=== PATIENT | male | born 1945 | race Hispanic/Latino ===

== ENCOUNTER 2016-08-08 12:06 | Day surgery (SDC) | payer MEDICARE ==
[~2016-08-08 12:06] MED LIST: OMNIPAQUE 300 MG/50 ML (CATH LAB) IV ONE; WATER FOR IRRIG STERILE IR ONE
--- NOTE | 2016-08-08 12:48 | Anesthesia Consultation ---
Anesthesia Consult and Med Hx Date of service: 08/08/16 - Airway Anesthetic Teeth Evaluation: Good, Bridges ROM Head & Neck: Adequate Mental/Hyoid Distance: Adequate Mallampati Class: Class III Intubation Access Assessment: Probably Good - Pulmonary Exam CTA: Yes (cough from recent cold x2 weeks ago) - Cardiac Exam Cardiac Exam: RRR - Pre-Operative Health Status ASA Pre-Surgery Classification: ASA3 Proposed Anesthetic Plan: General - Pulmonary Hx Smoking: Yes (STOPPED X 40 YRS- 2PPD X 6 YRS) SOB: No (coughing from recent cold 2x week ago) Hx Sleep Apnea: No (SG PRE SCREEN HIGH RISK) - Cardiovascular System Hx Hypertension: Yes (X 20 YRS) - Central Nervous System Hx Seizures: No CVA: No Hx Psychiatric Problems: No - Gastrointestinal Hx Gastroesophageal Reflux Disease: No - Endocrine Hx Non-Insulin Dependent Diabetes: Yes Hx Thyroid Disease: Yes Hx Hypothyroidism: Yes (ON MEDS) - Hematic Hx Anemia: No Hx Sickle Cell Disease: No - Other Systems Hx Alcohol Use: Yes (OCCASIONAL BEER) Hx Substance Use: No Hx Cancer: Yes
--- NOTE | 2016-08-08 12:49 | Anesthesia Day of Surgery ---
Anesthesia Day of Surgery - Day of Surgery Patient Examined: Yes Patient H&P Reviewed: Yes Patient is NPO: Yes
[2016-08-08] MEDS ORDERED: NACL 0.9% 1000 ML 1,000 ML IV SCH (12:50)
[2016-08-08] MEDS ORDERED: PEPCID IV NR (12:50)
[2016-08-08] MEDS ORDERED: VERSED IV NR (12:51)
[2016-08-08] MEDS ORDERED: ANCEF/STERILE WATER 2 GM/20 ML IV NR (13:00)
[2016-08-08 13:22] LABS: Hematocrit 42.5 % (35.5-45.6); Hemoglobin 14.8 gm/dl (11.8-15.2)
[2016-08-08] MEDS ORDERED: DIPRIVAN 10 MG/ML IV ONE (13:24)
[2016-08-08] MEDS ORDERED: SUBLIMAZE ONE (13:24)
[2016-08-08 13:39] LABS: Anion Gap 15 mmol/L; BUN/Creatinine Ratio 21.66; Blood Urea Nitrogen 13 mg/dL (9-20); Calcium 8.7 mg/dL (8.4-10.2); Carbon Dioxide 25 mmol/L (22-30); Chloride 102.6 mmol/L (98-107); Glucose 141 mg/dL (75-100); Potassium 4.2 mmol/L (3.6-5.0); Sodium 138 mmol/L (137-145)
[2016-08-08] MEDS ORDERED: ZOFRAN IV PRN (14:04)
[2016-08-08] MEDS ORDERED: DILAUDID IV PRN (14:04)
[2016-08-08] MEDS ORDERED: NACL 0.9% 0 ML ONE (14:22)
[2016-08-08] MEDS ORDERED: NEO SYNEPHRINE ONE (14:22)
[2016-08-08] MEDS ORDERED: ROBINUL ONE (14:22)
[2016-08-08] MEDS ORDERED: ZOFRAN ONE ×2 (14:23)
[2016-08-08] MEDS ORDERED: DECADRON ONE (14:23)
[2016-08-08] MEDS ORDERED: OMNIPAQUE 300 MG/50 ML (CATH LAB) IV ONE (14:42)
[2016-08-08] MEDS ORDERED: WATER FOR IRRIG STERILE IR ONE ×2 (14:44)
[2016-08-08] MEDS ORDERED: NACL 0.9% 1000 ML 1,000 ML ONE (14:47)
--- NOTE | 2016-08-08 14:53 | Post Operative Note ---
Pre-op diagnosis: bladder cancer Post-op diagnosis: same Findings: patchy area post wall and prost urethra Procedure: cysto biopsies chandler gusman Anesthesia: GETMichelle Surgeon: ROB VARNER Estimated blood loss: minimal Pathology: list (bladder lesions) Specimen disposition: to lab Condition: stable Disposition: PACU
--- NOTE | 2016-08-08 14:54 | Discharge Summary ---
Short Stay Discharge Plan Activity: other (no straining ) Weight Bearing Status: Full Weight Bearing Diet: low fat, low cholesterol, low salt Special Instructions: other (inc fluids ) Durable Medical Equipment Needed Upon Discharge: other (home with [facility] ) Follow up with: MAX BARNES DO [Primary Care Provider] - 7 Days ROB VARNER MD [Staff Physician] - 7 Days
--- NOTE | 2016-08-08 15:54 | Post Anesthesia Evaluation ---
- Post Anesthesia Evaluation Patient Participated: Yes Airway Patent: Yes Stable Respiratory Function: Yes Nausea/Vomiting: No Temp > 96.8F: Yes Pain Manageable: Yes Adequeate Hydration: Yes Anesthesia Complications: No Block Receding Appropriately: Not Applicable Patient on Ventilator: No
--- NOTE | 2016-08-08 16:00 | Fluoroscopy Report ---
Retrograde pyelogram: Injections of contrast were made bilaterally into the distal ureters. There is good opacification of the ureters and intrarenal collecting systems. No filling defects or contour deformity is noted. Impression: Normal exam.
[2016-08-08 16:57] VITALS: BP 152/86
--- NOTE | 2016-08-15 01:16 | Operative Report ---
PREOPERATIVE DIAGNOSES: History of bladder cancer. POSTOPERATIVE DIAGNOSIS: History of bladder cancer. PROCEDURE: Cystoscopy, bladder biopsies. SURGEON: Ronni Ramires MD ANESTHESIA: General. FINDINGS: This is a gentleman with history of bladder cancer, now presents for surveillance cystoscopy. All risks and complications were discussed. DESCRIPTION OF PROCEDURE: The patient was brought to the operating room and placed on the operating table. Following induction of anesthesia, placed in lithotomy position, prepped and draped in usual sterile fashion. Cystourethroscopy showed some erythema in the posterior wall of the bladder and at the prostatic urethra. This was right sitting on the bladder epithelium, would be sitting on the middle lobe when the bladder was emptied. The areas were biopsied and cauterized. Retrograde showed no persistent filling defects. The patient tolerated the procedure well. There were no significant complications, brought to recovery room in stable condition. Urine was clear. JOB# [id number] DAVID/CARMELA
== END 2016-08-08 16:40 | disposition home or self-care (01) ==
LOC: OR 12:06
PROVIDERS: ATTEND Urology
DX: C67.2 Malignant neoplasm of lateral wall of bladder (principal); Z87.891 Personal history of nicotine dependence; I10 Essential (primary) hypertension; E03.9 Hypothyroidism, unspecified; F10.99 Alcohol use, unspecified with unspecified alcohol-induced disorder; E11.9 Type 2 diabetes mellitus without complications; Z87.39 Personal history of other diseases of the musculoskeletal system and connective tissue; Z86.19 Personal history of other infectious and parasitic diseases
CPT/HCPCS: 36415; 52204; 74420; 80048; 82962; 85014; 85018; 88305; A4217; C1758; J0690; J1100; J2250; J2405; J2704; J3010; J7030; Q9967; J2370

== ENCOUNTER 2016-11-28 10:28 | Day surgery (SDC) | payer MEDICARE ==
--- NOTE | 2016-11-22 13:10 | Admit Criteria Form ---
Admission Criteria Documentation: AMBULATORY SURGERY EXCEPTION CRITERIA Ambulatory Surgery Exception Criteria ( Place 'X' for any and all applicable criteria): Surgery or procedure performed on ambulatory basis may require inpatient stay for[A] ANY ONE of the following(1)(2)(3)(4)(5)(6)(7)(8)(9): [X] I. A preoperative situation, condition, or finding that warrants inpatient stay as indicated by ANY ONE of the following: [X] a) Inpatient care needed because of severity of a disease or condition rather than the surgery (eg, severe cardiac or respiratory disease, severe infection) (15) (16 ) (17) (18) [] b) Emergent procedure (eg, angioplasty for acute ischemia)(19) [] c) Complex surgical approach or situation as indicated by ANY ONE of the following(3): [] i) Open approach needed instead of usual endoscopic, transcatheter, or other less invasive procedure [] ii) Difficult approach because of previous operation [] iii) Airway monitoring required after open neck procedures(20)(21) [] iv) Large mass requiring unusually extensive dissection [] v) Additional complicating feature requiring inpatient care (eg, drain management)(22(23): [] d) Major surgery in a pt with high anesthetic risk as indicated by ANY ONE of the following (2)(3)(5)(7)(8): [] i) ASA risk class III or higher (severe systemic disease impairing function) [D] [] ii) Advanced age (eg, older than 85 years)(14)(24) [] iii) Symptomatic heart failure(25) [] iv) Symptomatic asthma or COPD(8)(21) [] v) Morbid obesity with hemodynamic or respiratory problems(20)( 21)(26)(27) [] vi) Obstructive sleep apnea(20)(21) [] vii) Former premature infants who are younger than 60 weeks [] viii) High risk for severe postoperative abnormalities (eg, severe postoperative hypocalcemia after parathyroidectomy for severe hyperparathyroidism)(27)( 28) [] ix) Unstable angina(25) [] e) Drug-related risk requiring inpatient stay as indicated by ANY ONE of the following(5)(10)(14)(32)(33) [] i) Procedure requires discontinuing drugs or other therapy (eg , antiarrhythmic medication, antiseizure medication), which necessitates inpatient observation or treatment.(18)(31) [] ii) Major surgery and high risk drug use as indicated by ANY ONE of the following: [] 1) Active abuse of cocaine or similar drug [] 2) Monoamine oxidase inhibitor use [] 3) Other drug identified as posing risk [] f) Inadequate outpatient care situation as indicated by ANY ONE of the following(5)(10)(14)(32)(33) [] i) Patient lives remote from medical facility and procedure has urgent complication potential, and temporary nearby residence cannot be arranged [] ii) Patient will have postprocedure incapacitation and inadequate assistance at home, or alternative level of care cannot be arranged. [] iii) Patient will have long general anesthesia or procedure side effect resolution time, and competent person to stay with patient on first postoperative night at home or alternative level of care cannot be arranged. []iv) Other inadequate outpatient situation that cannot be handled by other means [] II. A perioperative event, condition, or finding that warrants inpatient stay as indicated by ANY ONE of the following (1)(2)(3): [] a) Inadequate physiologic recovery: cardiovascular, respiratory, or hemodynamic status not normal or near preoperative baseline(18) [] b) Hemodynamic instability [] c) Patient not alert with near normal or baseline mental status [] d) Temperature not normal or as expected and not appropriate for outpatient treatment of condition [] e) Ambulatory or appropriate activity level status not yet achieved post procedure [E](34)(35)(36) [] f) Operative site not appropriate (eg, unexpected or excessive drainage or bleeding) [] g) Postoperative effects not resolved or adequately managed (eg, significant pain or vomiting not appropriate for outpatient or next level of care)(10)(12) [] h) Complicating features requiring inpatient care as indicated by ANY ONE of the following(37): [] i) Severe complications of procedure (eg, bowel injury, airway compromise, vascular injury,severe hemorrhage) [] ii) Extensive (eg, dissection far beyond usual scope of procedure ) or prolonged (eg, 120 minutes beyond usual) surgery needed requiring inpatient postoperative care [] iii) Conversion to an open or complex procedure that requires inpatient care (eg, open vs laparoscopic cholecystectomy, abdominal vs vaginal hysterectomy)(38) [] iv) Comorbid condition or test result identified during or post procedure that requires inpatient care (7) [] v) Malignant hyperthermia(30) [] vi) Other complicating feature requiring inpatient care(22)(23) Inpatient stay may be needed until ALL of the following are present (1)(2)(3)(4) (5)(6)(10)(14)(33)(40): []a) Physiologic recovery: cardiovascular, respiratory, and hemodynamic status normal or near preoperative baseline []b) Hemodynamic stability []c) Patient alert, with near normal or baseline mental status []d) Temperature appropriate: patient afebrile or temperature appropriate for outpt treatment of condition []e) Activity level appropriate: ambulatory or appropriate activity level post procedure []f) Operative site appropriate as indicated by ALL of the following: []i) Site dry or with expected drainage []ii) Any blood noted is as expected for procedure. []g) Postoperative effects resolved or managed as indicated by ALL of the following: []i) Pain management appropriate for outpatient (or next level of) care(10) []ii) Minimal nausea and vomiting: if present, successfully treated with oral medication(12) []iii) Headache, dizziness, or drowsiness (if present) are mild. []h) Voiding status acceptable as indicated by ANY ONE of the following: []i) Voiding spontaneously []ii) No voiding but instructions given for follow-up in 6 to 8 hours []iii) Urinary catheter in place, and instructions given for follow-up []i) Complicating features requiring inpatient care manageable at a lower level of care(37) []j) Comorbid conditions manageable at a lower level of care(37) The original [employer] content created by [employer] has been revised. The portions of the content which have been revised are identified through the use of italic text or in bold, and [employer] has neither reviewed nor approved the modified material. All other unmodified content is copyright [employer]. Please see references footnoted in the original [employer] edition 2016
[~2016-11-28 10:28] MED LIST changes: +ANCEF/STERILE WATER 2 GM/20 ML 2 GM/20 ML SYRINGE IV NR; +NACL 0.9% 1000 ML 1,000 ML IV SCH; -OMNIPAQUE 300 MG/50 ML (CATH LAB) IV ONE; +PEPCID PO NR; -WATER FOR IRRIG STERILE IR ONE
[2016-11-28] MEDS ORDERED: NACL BACTERIOSTATIC INFILTRATI ONE (10:50)
--- NOTE | 2016-11-28 11:19 | Anesthesia Consultation ---
Anesthesia Consult and Med Hx Date of service: 11/28/16 - Airway Anesthetic Teeth Evaluation: Good, Crowns, Bridges ROM Head & Neck: Adequate Mental/Hyoid Distance: Adequate Mallampati Class: Class III Intubation Access Assessment: Possibly Difficult - Pre-Operative Health Status ASA Pre-Surgery Classification: ASA3 Proposed Anesthetic Plan: General - Pulmonary Hx Smoking: Yes (STOPPED X 40 YRS- 2PPD X 6 YRS) Hx Sleep Apnea: No (SG PRE SCREEN HIGH RISK) - Cardiovascular System Hx Hypertension: Yes (X 20 YRS) Hx Coronary Artery Disease: No (high cholesterol) - Central Nervous System Hx Seizures: No CVA: No Hx Psychiatric Problems: No - Gastrointestinal Hx Gastroesophageal Reflux Disease: No - Endocrine Hx Non-Insulin Dependent Diabetes: Yes Hx Thyroid Disease: Yes Hx Hypothyroidism: Yes (ON MEDS) - Hematic Hx Anemia: No Hx Sickle Cell Disease: No - Other Systems Hx Alcohol Use: Yes (OCCASIONAL BEER) Hx Substance Use: No Hx Cancer: Yes Hx Obesity: Yes (BMI 33)
--- NOTE | 2016-11-28 11:19 | Anesthesia Day of Surgery ---
Anesthesia Day of Surgery - Day of Surgery Patient Examined: Yes Patient H&P Reviewed: Yes Patient is NPO: Yes
[2016-11-28 11:26] LABS: Hematocrit 43.6 % (35.5-45.6); Hemoglobin 14.9 gm/dl (11.8-15.2)
[2016-11-28] MEDS ORDERED: XYLOCAINE MPF 2% ONE (11:38)
[2016-11-28] MEDS ORDERED: DIPRIVAN 10 MG/ML IV ONE (11:39)
[2016-11-28] MEDS ORDERED: SUBLIMAZE ONE (11:39)
[2016-11-28 11:47] LABS: Anion Gap 14 mmol/L; Blood Urea Nitrogen 14 mg/dL (9-20); Calcium 8.7 mg/dL (8.4-10.2); Carbon Dioxide 26 mmol/L (22-30); Chloride 103.2 mmol/L (98-107); Glucose 133 mg/dL (75-100); Potassium 4.1 mmol/L (3.6-5.0); Sodium 139 mmol/L (137-145)
[2016-11-28] MEDS ORDERED: VERSED IV NR (12:00)
--- NOTE | 2016-11-28 12:29 | Post Operative Note ---
Pre-op diagnosis: bladder cancer Post-op diagnosis: same Findings: bt's Procedure: cysto turbt and tur bx prostatic urethra Anesthesia: GETA Surgeon: ROB VARNER Estimated blood loss: minimal Pathology: list (bladder) Specimen disposition: to lab Condition: stable Disposition: PACU
--- NOTE | 2016-11-28 12:31 | Discharge Summary ---
Short Stay Discharge Plan Activity: other (no straining ) Weight Bearing Status: Full Weight Bearing Diet: low fat, low cholesterol Special Instructions: other (inc fluids ) Durable Medical Equipment Needed Upon Discharge: other ([facility] cath care ) Follow up with: MAX BARNES DO [Primary Care Provider] - 7 Days ROB VARNER MD [Staff Physician] - 3 Days
[2016-11-28] MEDS ORDERED: NACL 0.9% IR ONE (13:16)
[2016-11-28] MEDS ORDERED: SORBITOL-MANNITOL IRRIG IR ONE (13:17)
[2016-11-28] MEDS ORDERED: WATER FOR IRRIG STERILE IR ONE ×2 (13:17)
[2016-11-28] MEDS ORDERED: LASIX ONE (13:45)
[2016-11-28] MEDS ORDERED: ZOFRAN ONE (14:08)
[2016-11-28] MEDS ORDERED: DECADRON ONE (14:08)
[2016-11-28] MEDS ORDERED: NACL 0.9% IR SCH (15:00)
--- NOTE | 2016-11-28 17:21 | Operative Report ---
PREOPERATIVE DIAGNOSIS: Recurrent bladder cancer. POSTOPERATIVE DIAGNOSIS: Recurrent bladder cancer. PROCEDURE: Cystoscopy, resection of small bladder tumor above the right orifice and biopsy of the prostatic urethra. SURGEON: Ronni Ramires MD ANESTHESIA: General. FINDINGS: This is a gentleman who has a history of bladder cancer. He had a cystoscopy with biopsies about 4 months ago, which were benign with denuded epithelium. Recent cystoscopy showed a small papillary tumor with some erythema around it above the right orifice. He now presents for transurethral resection of prostate. DESCRIPTION OF PROCEDURE: The patient brought to the operating room and placed on the operating table. Following induction of anesthesia, placed in lithotomy position, prepped and draped in usual sterile fashion. Cystourethroscopy showed some mild trilobar hypertrophy with erythema and a small bladder tumor above the right orifice. Bladder was 1+ trabeculated. Using the 24-resectoscope, this area was resected. We were little more aggressive to make sure we got all the erythema. Specimens sent to pathology. We did biopsies of the prostatic urethra as well. I want to make sure that there is no prostatic urethral involvement that is seeding the bladder. The patient tolerated the procedure well. The irrigation, we connected up the Padron drip. I notified his who will watch him for a few hours to make sure it stays clear and then he can go home. Otherwise, we will keep him for 23-hour observation. JOB# [id number] DAVID/CARMELA
[2016-11-28 20:58] VITALS: BP 153/85
--- NOTE | 2016-11-29 09:40 | XRay Report ---
SUPINE KUB: History: Bladder tumor. The abdominal gas pattern is unremarkable. No masses or organomegaly is identified and there is no gross evidence of free air or fluid. No significant soft tissue calcifications are noted. IMPRESSION: Unremarkable abdomen.
== END 2016-11-28 19:25 | disposition home or self-care (01) ==
LOC: OR 10:28
PROVIDERS: ATTEND Urology
DX: C67.9 Malignant neoplasm of bladder, unspecified (principal); N30.80 Other cystitis without hematuria; N40.0 Benign prostatic hyperplasia without lower urinary tract symptoms; N32.89 Other specified disorders of bladder; I10 Essential (primary) hypertension; E78.00 Pure hypercholesterolemia, unspecified; E11.9 Type 2 diabetes mellitus without complications; E03.9 Hypothyroidism, unspecified; E66.9 Obesity, unspecified; Z68.33 Body mass index [BMI] 33.0-33.9, adult; Z72.89 Other problems related to lifestyle; Z87.891 Personal history of nicotine dependence
CPT/HCPCS: 36415; 52204; 52234; 74000; 80048; 82962; 85014; 85018; 88305; A4217; J0690; J1100; J1940; J2250; J2405; J2704; J3010; J7030

== ENCOUNTER 2017-03-19 11:35 | Day surgery (SDC) | payer MEDICARE ==
[~2017-03-19 11:35] MED LIST changes: -ANCEF/STERILE WATER 2 GM/20 ML 2 GM/20 ML SYRINGE IV NR
[2017-03-19] MEDS ORDERED: NACL BACTERIOSTATIC INFILTRATI ONE (13:03)
--- NOTE | 2017-03-19 13:47 | Anesthesia Day of Surgery ---
Anesthesia Day of Surgery - Day of Surgery Patient Examined: Yes Patient H&P Reviewed: Yes Patient is NPO: Yes
--- NOTE | 2017-03-19 13:47 | Anesthesia Consultation ---
Anesthesia Consult and Med Hx Date of service: 03/19/17 - Airway Anesthetic Teeth Evaluation: Good ROM Head & Neck: Adequate Mental/Hyoid Distance: Inadequate Mallampati Class: Class III Intubation Access Assessment: Possibly Difficult - Pulmonary Exam CTA: Yes - Cardiac Exam Cardiac Exam: RRR - Pre-Operative Health Status ASA Pre-Surgery Classification: ASA3 Proposed Anesthetic Plan: General - Pulmonary Hx Smoking: Yes (STOPPED X 40 YRS- 2PPD X 6 YRS) Hx Sleep Apnea: No (SG PRE SCREEN HIGH RISK) - Cardiovascular System Hx Hypertension: Yes (X 20 YRS) - Central Nervous System Hx Seizures: No CVA: No Hx Psychiatric Problems: No - Gastrointestinal Hx Gastroesophageal Reflux Disease: No - Endocrine Hx Liver Disease: No (Hepatitis A) Hx Non-Insulin Dependent Diabetes: Yes Hx Thyroid Disease: Yes Hx Hypothyroidism: Yes (ON MEDS) - Hematic Hx Anemia: No Hx Sickle Cell Disease: No - Other Systems Hx Alcohol Use: Yes (OCCASIONAL BEER) Hx Substance Use: No Hx Cancer: Yes Hx Obesity: Yes (BMI 33)
[2017-03-19] MEDS ORDERED: ANCEF/STERILE WATER 2 GM/20 ML IV NR (15:00)
[2017-03-19] MEDS ORDERED: DILAUDID ONE (16:02)
[2017-03-19] MEDS ORDERED: XYLOCAINE MPF 2% ONE (16:02)
[2017-03-19] MEDS ORDERED: DIPRIVAN 10 MG/ML IV ONE (16:02)
[2017-03-19] MEDS ORDERED: WATER FOR IRRIG STERILE IR ONE ×2 (16:09)
[2017-03-19] MEDS ORDERED: ZOFRAN ONE (17:13)
[2017-03-19] MEDS ORDERED: OMNIPAQUE 300 MG/50 ML (CATH LAB) IV ONE (17:27)
--- NOTE | 2017-03-19 17:43 | Post Anesthesia Evaluation ---
- Post Anesthesia Evaluation Patient Participated: Yes Airway Patent: Yes Stable Respiratory Function: Yes Nausea/Vomiting: No Temp > 96.8F: Yes Pain Manageable: Yes Adequeate Hydration: Yes Anesthesia Complications: No
[2017-03-19 23:03] VITALS: BP 133/79
--- NOTE | 2017-03-20 16:49 | Fluoroscopy Report ---
RETROGRADE PYELOGRAM: There is adequate filling of the ureters and intrarenal collecting systems with no filling defects or anatomic abnormalities identified.
--- NOTE | 2017-03-21 08:25 | Fluoroscopy Report ---
SINGLE FLUOROSCOPIC IMAGE PELVIS AT CYSTOGRAPHY: 03/19/17 CLINICAL: A bladder neoplasm. FINDINGS: A single image demonstrates opacification of a small urinary bladder with trabeculation. A Estrada catheter is in place. For more detail, please refer to the operative report.
--- NOTE | 2017-03-21 10:54 | Operative Report ---
PREOPERATIVE DIAGNOSIS: Bladder cancer. POSTOPERATIVE DIAGNOSIS: Bladder cancer. SURGEON: Oleg Vazquez M.D. ANESTHESIA: General. SPECIMENS: Bladder biopsies of suspicious areas. PROCEDURE: Cystoscopy, bladder biopsy and fulguration of approximately 2 cm area, cysto and RPG. ANESTHESIA: General. ESTIMATED BLOOD LOSS: Minimal. PATHOLOGY: Bladder biopsies. FINDINGS: Along the intramural ureter and anterior extending to the lateral wall cephalad and posterior inflamed, erythematous area likely past biopsy sites. Also, possible versus inflammatory reaction, large lateral and median lobes. High dome of bladder with distention. No extravasation with cystogram. Cysto and RPG with some mild J hooking likely from large median lobe. CLINICAL INDICATIONS: The patient counseled RCBA, antibiotics, SCDs by my partner and by myself. Has a history of bladder cancer with BCG and on awake cystoscopy found some suspicious areas and scheduled for this procedure. DESCRIPTION OF PROCEDURE: The patient had antibiotics, SCDs, transferred to OR suite, supine position. Anesthesia, dorsal lithotomy, prepped and draped in standard fashion. A 22-Marshallese scope passed, normal penile urethral, bulbar urethra. Prostatic urethra demonstrates a large lateral lobe and a large median lobe with ureteral orifices just under the median lobe, but visible. A pancystoscopy 30 and 70 degree lens was performed with suspicious findings as described as following. Left UO cannulated with an 8-Marshallese cone-tipped catheter, contrast injected. Demonstrated a slightly narrow ureter and then some slight J hooking. On live fluoroscopy, no filling defects in the left distal ureter, proximal ureter, renal pelvis and calices with good drainage and efflux of the system with no blood. This was repeated on the right side with slightly more J hooking, could be related to previous biopsy or inflammatory sites putting some, but also looked maybe a little bit similar to the left, but maybe slightly worse with a slightly narrow ureter, likely compression from the median lobe. The suspicious area that was seen on the awake cystoscopy by my partner and by myself at this point, there was a suspicious area just along the intramural ureter, but palpated extending to anterior. It could be from previous biopsies, resection, and having an inflammatory reaction. This extended cephalad along the bladder wall, cephalad and posteriorly, and this was obviously a difficult area to resect. With irrigation, it did appear that this did not appear to be going into deeper areas, especially as it entered more cephalad and posteriorly. At this point, it was elected with doing the TUR resection scope versus a rigid biopsy forceps. Given the position and location, felt that we could get immersion metal cleaner, deeper specimens with multiple rigid biopsies for diagnosis. The rigid biopsy forceps was passed, we started more away from the ureter. A deep biopsy was taken. This appeared to go through the muscle, likely by the appearance of the underlying muscular fibers and tending towards some deeper layers of the bladder. At this point, we started to go more medially, more caudad towards the ureteral orifice. A couple more deep biopsies were sent. These were sent for pathology. Of note, the deeper tissue did not appear very vascular, more like underlying scar tissue, so most likely there is not vascular, may not be any vascular blood supply to any tumor in the deeper layers and all the deeper layers did appear more like scar tissue just below the more superficial layers of the bladder mucosa likely. We additionally took a flexible biopsy forceps of the area over the ureter. A biopsy was taken. Once again, the deeper layer looked clean. These areas were then cauterized with Bugbee. The area was irrigated several times. Due to the patient's appearance of a large prostate, large median lobe, trabeculation ; there is some suspicion of high pressure voiding, so it was elected at this time to place a catheter. (1) The patient may have difficulty voiding after the procedure and (2) with high pressure voiding, may be at risk of causing bladder leakage. A Estrada catheter was inserted. Contrast injected, cystogram performed. No extravasation noted. Exam under anesthesia, bladder drained clear. Testicles, nodes nontender and no masses. Digital rectal exam, prostate, no nodules. JOB# [id number] LSR/CARMELA
== END 2017-03-19 20:00 | disposition home or self-care (01) ==
LOC: OR 11:35
PROVIDERS: ATTEND Urology
DX: C67.9 Malignant neoplasm of bladder, unspecified (principal); N30.20 Other chronic cystitis without hematuria; N30.00 Acute cystitis without hematuria; I10 Essential (primary) hypertension; E11.9 Type 2 diabetes mellitus without complications; E03.9 Hypothyroidism, unspecified; E66.9 Obesity, unspecified; Z68.33 Body mass index [BMI] 33.0-33.9, adult; Z87.891 Personal history of nicotine dependence; Z86.19 Personal history of other infectious and parasitic diseases; Z72.89 Other problems related to lifestyle; Z98.890 Other specified postprocedural states; Z79.899 Other long term (current) drug therapy; Z79.84 Long term (current) use of oral hypoglycemic drugs; Z82.49 Family history of ischemic heart disease and other diseases of the circulatory system
CPT/HCPCS: 52204; 74420; 74430; 82962; 88305; A4217; C1758; J0690; J1170; J2405; J2704; J7030; Q9967

== ENCOUNTER 2018-04-14 06:02 | Day surgery (SDC) | payer MEDICARE ==
[2018-04-14] MEDS ORDERED: DILAUDID IV PRN (06:51)
[2018-04-14] MEDS ORDERED: ZOFRAN IV PRN (06:51)
[2018-04-14] MEDS ORDERED: NACL 0.9% 1000 ML 1,000 ML IV SCH ×2 (07:00)
[2018-04-14] MEDS ORDERED: VERSED IV NR (07:00)
[2018-04-14] MEDS ORDERED: DIPRIVAN 10 MG/ML IV ONE (07:10)
[2018-04-14] MEDS ORDERED: DILAUDID ONE (07:11)
[2018-04-14] MEDS ORDERED: XYLOCAINE MPF 2% ONE (07:11)
[2018-04-14] MEDS ORDERED: ZOFRAN ONE ×2 (07:50→07:56)
[2018-04-14] MEDS ORDERED: DECADRON ONE (07:56)
--- NOTE | 2018-04-14 08:05 | Anesthesia Day of Surgery ---
Anesthesia Day of Surgery - Day of Surgery Patient Examined: Yes Patient H&P Reviewed: Yes Patient is NPO: Yes
[2018-04-14] MEDS ORDERED: ANCEF ONE (08:06)
--- NOTE | 2018-04-14 08:07 | Anesthesia Consultation ---
Anesthesia Consult and Med Hx Date of service: 04/14/18 - Airway Anesthetic Teeth Evaluation: Good, Chipped ROM Head & Neck: Adequate Mental/Hyoid Distance: Adequate Mallampati Class: Class III Intubation Access Assessment: Possibly Difficult - Pulmonary Exam CTA: Yes - Cardiac Exam Cardiac Exam: RRR - Pre-Operative Health Status ASA Pre-Surgery Classification: ASA3 Proposed Anesthetic Plan: General - Pulmonary Hx Smoking: Yes (STOPPED X 41 YRS- 2PPD X 6 YRS) Hx Sleep Apnea: No (SG PRE SCREEN HIGH RISK) - Cardiovascular System Hx Hypertension: Yes (X 21 YRS) - Central Nervous System Hx Seizures: No CVA: No Hx Psychiatric Problems: No - Gastrointestinal Hx Gastroesophageal Reflux Disease: No - Endocrine Hx Liver Disease: No (Hepatitis A) Hx Non-Insulin Dependent Diabetes: Yes Hx Thyroid Disease: Yes Hx Hypothyroidism: Yes (ON MEDS) - Hematic Hx Anemia: No Hx Sickle Cell Disease: No - Other Systems Hx Alcohol Use: Yes (OCCASIONAL BEER) Hx Substance Use: No Hx Cancer: Yes Hx Obesity: Yes (BMI 33)
--- NOTE | 2018-04-14 08:36 | Post Operative Note ---
Date of procedure: 04/14/18 Pre-op diagnosis: bladder cancer Post-op diagnosis: same Findings: erythema Procedure: cysto rpg biopsies Anesthesia: GETA Surgeon: ROB VARNER Estimated blood loss: minimal Pathology: list (bladder) Specimen disposition: to lab Condition: stable Disposition: PACU
--- NOTE | 2018-04-14 08:37 | Discharge Summary ---
Short Stay Discharge Plan Activity: other (no straining ) Weight Bearing Status: Full Weight Bearing Diet: regular, low fat, low salt Special Instructions: other (catheter care ) Durable Medical Equipment Needed Upon Discharge: other ([facility] ) Follow up with: NEGAR OWENS MD [Primary Care Provider] - 7 Days ROB VARNER MD [Staff Physician] - 3 Days
[2018-04-14] MEDS ORDERED: WATER FOR IRRIG STERILE IR ONE ×2 (08:50→08:51)
--- NOTE | 2018-04-14 10:30 | Operative Report ---
PREOPERATIVE DIAGNOSES: Bladder lesions, history of bladder cancer. POSTOPERATIVE DIAGNOSES: Bladder lesions, history of bladder cancer. PROCEDURES: Cystoscopy, biopsy, fulguration, retrograde. SURGEON: Ronni Ramires MD ANESTHESIA: General. FINDINGS: This gentleman with bladder lesions, history of bladder cancer. He had a couple areas of very small erythema in left lateral wall and now presents for biopsies. DESCRIPTION OF PROCEDURE: The patient brought to the operating room and placed on the operating table. Following induction of anesthesia, placed in lithotomy position, prepped and draped in usual sterile fashion. Cystourethroscopy showed this area, which was easily biopsied. He did have an enlarged prostate with little middle lobe from the right side. The patient tolerated the procedure well. We did multiple biopsies including prostatic urethra. Estrada catheter was left for 2-3 days. Retrograde showed a little bit of J hooking with good drainage bilaterally. No persistent filling defects in fluoroscopy. The patient tolerated the procedure well and brought to recovery in stable condition. JOB# [id number] DAVID/CARMELA
[2018-04-14 10:47] VITALS: BP 122/70
--- NOTE | 2018-04-14 11:02 | Fluoroscopy Report ---
FLUOROSCOPY RETROGRADE UROGRAPHY: FLUOROSCOPY CYSTOGRAM STATIC-OR: HISTORY: Malignant neoplasm of bladder. FINDINGS: Fluoroscopy was provided by radiology during retrograde urography by the urologist. 9 fluoroscopic images were captured. There is adequate filling of the ureters and intrarenal collecting systems with no filling defects or anatomic abnormalities identified. Please correlate with the procedural report if needed. No bladder abnormality is detected on fluoroscopy. Bladder biopsies with fulgurations was performed per the operative notes. IMPRESSION: Retrograde pyelograms within normal limits.
== END 2018-04-14 10:15 | disposition home or self-care (01) ==
LOC: OR 06:02
PROVIDERS: ATTEND Urology
DX: N30.20 Other chronic cystitis without hematuria (principal); N40.0 Benign prostatic hyperplasia without lower urinary tract symptoms; I10 Essential (primary) hypertension; E11.39 Type 2 diabetes mellitus with other diabetic ophthalmic complication; H42 Glaucoma in diseases classified elsewhere; B15.9 Hepatitis A without hepatic coma; E03.9 Hypothyroidism, unspecified; M19.90 Unspecified osteoarthritis, unspecified site; M10.9 Gout, unspecified; E66.9 Obesity, unspecified; Z68.33 Body mass index [BMI] 33.0-33.9, adult; Z79.82 Long term (current) use of aspirin; Z79.899 Other long term (current) drug therapy; Z79.84 Long term (current) use of oral hypoglycemic drugs; Z72.89 Other problems related to lifestyle; Z85.51 Personal history of malignant neoplasm of bladder; Z87.891 Personal history of nicotine dependence; Z98.890 Other specified postprocedural states
CPT/HCPCS: 52204; 74420; 82962; 88112; 88305; A4217; C1758; J0690; J1100; J1170; J2405; J2704; J7030; Q9967; 74430

== ENCOUNTER 2019-05-13 12:22 | Day surgery (SDC) | payer MEDICARE ==
[~2019-05-13 12:22] MED LIST changes: -NACL 0.9% 1000 ML 1,000 ML IV SCH; -PEPCID PO NR; +WATER FOR IRRIG STERILE IR ONE
[2019-05-13] MEDS ORDERED: ANCEF/STERILE WATER 2 GM/20 ML IV NR (13:00)
--- NOTE | 2019-05-13 13:19 | Anesthesia Consultation ---
Anesthesia Consult and Med Hx Date of service: 05/13/19 - Airway Anesthetic Teeth Evaluation: Good (implants) ROM Head & Neck: Adequate (mild restricted extension) Mental/Hyoid Distance: Adequate Mallampati Class: Class III Intubation Access Assessment: Possibly Difficult - Pulmonary Exam CTA: Yes - Cardiac Exam Cardiac Exam: RRR - Pre-Operative Health Status ASA Pre-Surgery Classification: ASA3 Proposed Anesthetic Plan: General - Pulmonary Hx Smoking: Yes (12pk yr hx; quit >30yrs ago) Hx Respiratory Symptoms: Yes (bronchitis 2mos ago s/p abx. No residual symptoms ) Hx Sleep Apnea: No (SG PRE SCREEN HIGH RISK) - Cardiovascular System Hx Hypertension: Yes Hx Heart Attack/AMI: No - Central Nervous System CVA: No - Gastrointestinal Hx Gastroesophageal Reflux Disease: No - Endocrine Hx Renal Disease: No Hx Insulin Dependent Diabetes: Yes Hx Non-Insulin Dependent Diabetes: Yes Hx Hypothyroidism: Yes - Other Systems Hx Cancer: Yes (bladder ca)
--- NOTE | 2019-05-13 13:19 | Anesthesia Day of Surgery ---
Anesthesia Day of Surgery - Day of Surgery Patient Examined: Yes Patient H&P Reviewed: Yes Patient is NPO: Yes
[2019-05-13] MEDS ORDERED: SUBLIMAZE IV PRN (13:20)
[2019-05-13] MEDS ORDERED: ZOFRAN ONE (13:30)
[2019-05-13] MEDS ORDERED: DECADRON ONE (13:30)
[2019-05-13] MEDS ORDERED: XYLOCAINE MPF 2% ONE (13:32)
[2019-05-13] MEDS ORDERED: DIPRIVAN 10 MG/ML IV ONE (13:33)
[2019-05-13] MEDS ORDERED: SUBLIMAZE ONE (13:33)
[2019-05-13] MEDS ORDERED: WATER FOR IRRIG STERILE IR ONE (14:00)
[2019-05-13] MEDS ORDERED: NACL 0.9% 1000 ML 1,000 ML IV SCH (14:00)
--- NOTE | 2019-05-13 14:45 | Post Operative Note ---
Date of procedure: 05/13/19 Pre-op diagnosis: bladder cancer Post-op diagnosis: same Findings: erythema Procedure: cysto biopsies rpgs Anesthesia: GETA Surgeon: ROB VARNER Estimated blood loss: minimal Pathology: list (bladder) Specimen disposition: to lab Condition: stable Disposition: PACU
--- NOTE | 2019-05-13 14:46 | Discharge Summary ---
Short Stay Discharge Plan Activity: other (no straining ) Weight Bearing Status: Full Weight Bearing Diet: low fat Special Instructions: other (inc fluids ) Durable Medical Equipment Needed Upon Discharge: other (home qwith marrero x 24 hrs ) Follow up with: NEGAR OWENS MD [Primary Care Provider] - 7 Days ROB VARNER MD [Staff Physician] - 05/14/19
--- NOTE | 2019-05-13 15:08 | Fluoroscopy Report ---
FLUOROSCOPY RETROGRADE UROGRAPHY HISTORY: Bladder cancer FINDINGS: 0.4 minutes of fluoroscopy time was provided by radiology during retrograde urography by manuel atkinson urologist. 4 fluoroscopic images are presented. Contrast opacifies normal-appearing renal collectin g systems bilaterally. No filling defect or abnormal dilatation is identified. Please correlate with the procedural report as needed. IMPRESSION: Normal bilateral retrograde pyelograms. Signer Name: Zach Banda Jr, MD Signed: 05/13/2019 3:04 PM Workstation Name: [id number]
[2019-05-13 15:30] VITALS: BP 141/91
--- NOTE | 2019-05-13 16:35 | Operative Report ---
PREOPERATIVE DIAGNOSIS: History of bladder cancer. PREOPERATIVE DIAGNOSIS: History of bladder cancer with erythema in posterior wall. PROCEDURE: Cystoscopy, retrograde with biopsy, and insertion of catheter. SURGEON: Dr. Ramires. ANESTHESIA: General. FINDINGS: The patient is a gentleman with history of bladder cancer. He had some erythema in posterior wall. He now presents for biopsy. DESCRIPTION OF PROCEDURE: The patient was brought to the operating room and placed on the operating table. Following induction of anesthesia, he was placed in lithotomy position, prepped and draped in usual sterile fashion. Cystourethroscopy showed the area of erythema. Biopsies were taken. The area was fulgurated. Retrograde showed some J hooking. There was a prominent middle lobe, mostly from the right side, but the bladder neck was open from previous resection. The old scar site was noted near where the erythema was in the posterior wall. The patient tolerated the procedure well. The area was cauterized. The urine was clear. The 18 catheter will be left for 24 hours. He will come in tomorrow for catheter removal. He was brought to recovery in stable condition. JOB# [id number] DAVID/CARMELA
== END 2019-05-13 16:00 | disposition home or self-care (01) ==
LOC: OR 12:22
PROVIDERS: ATTEND Urology
DX: C67.4 Malignant neoplasm of posterior wall of bladder (principal); N30.90 Cystitis, unspecified without hematuria; I10 Essential (primary) hypertension; M19.90 Unspecified osteoarthritis, unspecified site; E11.39 Type 2 diabetes mellitus with other diabetic ophthalmic complication; H40.9 Unspecified glaucoma; E03.9 Hypothyroidism, unspecified; Z72.89 Other problems related to lifestyle; Z79.899 Other long term (current) drug therapy; Z87.891 Personal history of nicotine dependence; Z79.84 Long term (current) use of oral hypoglycemic drugs; Z98.49 Cataract extraction status, unspecified eye; Z98.890 Other specified postprocedural states
CPT/HCPCS: 52204; 74420; 82962; 88112; 88305; A4217; C1758; J1100; J2405; J2704; J3010; Q9967